=== PATIENT | female | born 1970 | race Caucasian/White ===

== ENCOUNTER 2018-09-06 11:32 | Emergency (ER) | payer BC ==
--- NOTE | 2018-09-06 12:06 | EDM.PDOC ---
ED HPI GENERAL MEDICAL PROBLEM - General Chief Complaint: Laceration Stated Complaint: CUT RIGHT FOOT Time Seen by Provider: 09/06/18 11:55 Source of Information: Reports: Patient History Limitations: Reports: No Limitations - History of Present Illness INITIAL COMMENTS - FREE TEXT/NARRATIVE: right foot; lateral. Irregular; bleeding controlled. Walking out of door and hit the screen door with heel; resulting in laceration. Onset: Today Severity: Mild Improves with: Reports: None Worsens with: Reports: None Associated Symptoms: Reports: No Other Symptoms Right Ankle Pain Score (Numeric/FACES): 3 - Related Data Allergies Allergy/AdvReac Type Severity Reaction Status Date / Time No Known Allergies Allergy Verified 09/06/18 12:12 Home Meds: Home Meds Levothyroxine Sodium [Synthroid] 1 tab PO DAILY 09/06/18 [History] ED ROS GENERAL - Review of Systems Review Of Systems: See Below Constitutional: Reports: Fatigue Respiratory: Reports: No Symptoms Cardiovascular: Reports: No Symptoms Musculoskeletal: Reports: Foot Pain (right ankle) Skin: Reports: Other (laceration right lateral heel/ankle area) Neurological: Reports: No Symptoms ED EXAM, SKIN/RASH Exam: See Below Exam Limited By: No Limitations General Appearance: Alert, WD/WN, No Apparent Distress Head: Atraumatic, Normocephalic Neck: Normal Inspection, Supple, Full Range of Motion Respiratory/Chest: No Respiratory Distress, Lungs Clear Cardiovascular: Regular Rate, Rhythm Peripheral Pulses: 4+: Posterior Tibial (L), Posterior Tibial (R), Dorsalis Pedis (L), Dorsalis Pedis (R) Extremities: Normal Range of Motion, Normal Capillary Refill Neurological: Alert, Oriented Psychiatric: Normal Affect, Normal Mood Skin: Warm, Dry, Wound/Incision (laceration, 1 cm, irregular, right lateral heel area. Bleeding controlled. ) ED SKIN PROCEDURES - Laceration/Wound Repair Right Lateral Ankle Appearance: Subcutaneous Distal NVT: Neuro & Vascular Intact, No Tendon Injury Anesthetic Type: Local Local Anesthesia - Lidocaine (Xylocaine): 1% with EPI Local Anesthetic Volume: 5cc Skin Prep: Chlorhexidine (Hibiciens), Saline, Sterile Drape Exploration/Debridement/Repair: Wound Explored, In a Bloodless Field, Explored to Base, Minimal Debridement, No Foreign Material Found, Wound Margins Revised Closed with: Sutures Drain Placement: No Sterile Dressing Applied: Provider Tetanus Status Addressed: Yes (2015) Complications: No Course - Vital Signs Last Recorded V/S: Last Vital Signs Temp 98.8 F 09/06/18 12:11 Pulse 70 09/06/18 12:11 Resp 20 09/06/18 12:11 BP 129/77 09/06/18 12:11 Pulse Ox 97 09/06/18 12:11 - Orders/Labs/Meds Meds: Medications Discontinued Medications Generic Name Dose Route Start Last Admin Trade Name Jerson PRN Reason Stop Dose Admin Bacitracin 1 dose 09/06/18 12:15 09/06/18 12:22 Bacitracin Oint 1 Gm TOP 09/06/18 12:16 1 dose ONETIME ONE Administration Lidocaine/Epinephrine 5 ml 09/06/18 12:16 09/06/18 12:22 Xylocaine 1% With Epinephrine 1:100,000 SUBCUT 09/06/18 12:17 5 ml ONETIME ONE Administration Departure - Departure Time of Disposition: 12:51 Disposition: Home, Self-Care 01 Condition: Good Clinical Impression: Laceration of foot Qualifiers: Encounter type: initial encounter Laterality: right Qualified Code(s): S91.311A - Laceration without foreign body, right foot, initial encounter - Discharge Information *PRESCRIPTION DRUG MONITORING PROGRAM REVIEWED*: Not Applicable *COPY OF PRESCRIPTION DRUG MONITORING REPORT IN PATIENT MYNOR: Not Applicable Instructions: Laceration Care, Adult, [id number], Sutured Wound Care, Easy-to -Read Referrals: PCP,None [Primary Care Provider] - Forms: ED Department Discharge Additional Instructions: Keep area clean and dry Watch for infection Follow up for suture removal 5-7 days Call with questions. - Problem List & Annotations (1) Laceration of foot SNOMED Code(s): 278884317 Code(s): S91.319A - LACERATION WITHOUT FOREIGN BODY, UNSP FOOT, INIT ENCNTR Status: Acute Priority: Low Qualifiers: Encounter type: initial encounter Laterality: right Qualified Code(s): S91.311A - Laceration without foreign body, right foot, initial encounter - Problem List Review Problem List Initiated/Reviewed/Updated: Yes
[2018-09-06] MEDS ORDERED: Bacitracin Oint 1 GM U/D Packet TOP ONE (12:15)
[2018-09-06] MEDS ORDERED: Lidocaine 1% with EPINEPHrine 1:100,000 50 ML MDV SUBCUT ONE (12:16)
== END 2018-09-06 13:09 | disposition home or self-care (01) ==
LOC: JP.ED 11:32
DX: S91.311A Laceration without foreign body, right foot, initial encounter (principal); Z79.899 Other long term (current) drug therapy; W22.8XXA Striking against or struck by other objects, initial encounter
CPT/HCPCS: 12001; 99282